=== PATIENT | female | born 1945 | race Caucasian/White ===

== ENCOUNTER 2021-09-07 06:36 | Emergency (ER) | payer MEDICARE, BC ==
[~2021-09-07] VITALS: Ht 165.1 cm; Wt 83.9 kg
--- NOTE | 2021-09-07 06:45 | NUR ---
BIBRA 876 FROM HOME C/O NOSE BLEED X 1 HOUR. PT DENIES ANY TRAUMA +BLOOD THINNERS. PT BREATHING EVEN AND UNLABORED AND ALL V/S STABLE.
[2021-09-07] MEDS ORDERED: OXYMETAZOLINE HCL NASAL SPRAY 30 ML BOTTLE NS ONE ×2 (08:03→08:30)
[2021-09-07] MEDS ORDERED: CLONIDINE HCL 0.1 MG TABLET ONE (08:37)
--- NOTE | 2021-09-07 08:45 | NUR ---
NO BLEEDING AT THE R NOSTRIL NOTED. WILL KEEP ON MONITORING
[2021-09-07] MEDS ORDERED: CLONIDINE HCL 0.1 MG TABLET PO ONE (09:00)
--- NOTE | 2021-09-07 09:34 | NUR ---
Patient discharged to home in stable condition with daughter. Written and verbal after care instructions given. Patient verbalizes understanding of instruction.
[2021-09-07 09:40] VITALS: BP 160/80
== END 2021-09-07 09:41 | disposition home or self-care (01) ==
LOC: ER 06:39
DX: R04.0 Epistaxis (principal); I10 Essential (primary) hypertension; Z60.2 Problems related to living alone

== ENCOUNTER 2021-09-13 16:14 | Emergency (ER) | payer BC, MEDICARE ==
[~2021-09-13] VITALS: Ht 162.6 cm; Wt 81.2 kg
--- NOTE | 2021-09-13 16:14 | NUR ---
PT BIB DAUGHTER C/O NOSE BLEED STARTED 12NOON TODAY. PT IS AAOX4, NOT IN RESPIRATORY DISTRESS, HOOKED TO [employer], KEPT RESTED AND COMFORTABLE. WILL CONTINUE TO MONITOR.
[2021-09-13] MEDS ORDERED: OXYMETAZOLINE HCL NASAL SPRAY 30 ML BOTTLE NS ONE ×2 (16:42→17:00)
--- NOTE | 2021-09-13 18:31 | NUR ---
NASAL PACKING DONE. Patient discharged to home in stable condition. Written and verbal after care instructions given. Patient verbalizes understanding of instruction.
[2021-09-13 18:33] VITALS: BP 148/77
== END 2021-09-13 18:33 | disposition home or self-care (01) ==
LOC: ER 17:57
DX: R04.0 Epistaxis (principal); I10 Essential (primary) hypertension
CPT/HCPCS: 30901; 99284; A4217; A6403